=== PATIENT | male | born 1945 | race Caucasian/White ===

== ENCOUNTER 2021-02-08 12:53 | Inpatient (IN) | payer BC, OTHER ==
[~2021-02-08] VITALS: Ht 177.8 cm; Wt 81.6 kg
[~2021-02-08 12:53] MED LIST: BETABLOCKER; LIP10 PO; P MEDS; [UNRECOGNIZED DRUG - OTHER]
[2021-02-08 13:05] VITALS: BP_SYST 163
[2021-02-08] MEDS ORDERED: MORPHINE 2 MG/ML INJ. SYRINGE IM ONE (13:30)
[2021-02-08 14:13] LABS: BASOPHILS % (AUTO) 0.8 % (0.0-2.0); EOSINOPHILS % (AUTO) 0.4 % (0.0-4.0); HEMATOCRIT 37.1 % (36-54); HEMOGLOBIN 12.4 g/dL (14.0-18.0); LYMPHOCYTES # (AUTO) 1.1 K/uL (1.0-5.5); LYMPHOCYTES % (AUTO) 17.4 % (20.5-51.5); MEAN CORPUSCULAR HEMOGLOBIN 32 pg (27-31); MEAN CORPUSCULAR HGB CONC 34 % (32-36); MEAN CORPUSCULAR VOLUME 94 fL (79.0-98.0); MONOCYTES # (AUTO) 0.3 K/uL (0.0-1.0); NEUTROPHILS # (AUTO) 4.8 K/uL (1.8-7.7); NEUTROPHILS % (AUTO) 76.4 % (40.0-70.0); PLATELET COUNT (AUTO) 226 K/uL (130-430); RED BLOOD CELL COUNT(AUTO) 3.95 MIL/uL (4.2-6.2); RED CELL DISTRIBUTION WIDTH 14.1 % (9.0-15.0); WHITE BLOOD COUNT (AUTO) 6.3 K/uL (4.8-10.8)
[2021-02-08 14:28] LABS: ANION GAP 6 (5-15); CALCIUM 9.7 mg/dL (8.4-11.0); CHLORIDE 104 mmol/L (98-107); GLUCOSE 94 mg/dL (70-99); POTASSIUM 4.4 mmol/L (3.5-5.1); SODIUM SERUM 137 mmol/L (136-145); UREA NITROGEN, BLOOD 24 mg/dL (8-21)
[2021-02-08 14:34] LABS: ALANINE AMINOTRANSFERASE 25 U/L (12-78); ALBUMIN 4.2 g/dL (3.4-4.8); ASPARTATE AMINOTRANSFERASE 18 U/L (10-37); LIPASE 87 U/L (73-393); TOTAL BILIRUBIN 0.8 mg/dL (0.0-1.0)
[2021-02-08] MEDS ORDERED: ONDANSETRON HCL 4 MG/2 ML VIAL IVP ONE (15:00)
[2021-02-08] MEDS ORDERED: MORPHINE 4 MG INJ. 4 MG/ML VIAL IVP ONE ×2 (15:00→15:45)
[2021-02-08] MEDS ORDERED: MAG HYDROX/AL HYDROX/SIMETH 30 ML, DICYCLOMINE HCL 20 MG, LIDOCAINE VISCOUS 2% 15ML (PO... PO ONE ×3 (16:00)
[2021-02-08] MEDS: NACL 0.9% 1,000 ML IV SCH (20:09)
[2021-02-08] MEDS: PANTOPRAZOLE SODIUM 40 MG/VIAL (PROTONIX) IVP SCH (20:10)
[2021-02-08 22:10] VITALS: BP_SYST 126
[2021-02-08] MEDS: MAG-AL HYDROX/SIMETH 30 ML UDC PO PRN (22:19)
[2021-02-09] VITALS: BP_SYST 126
[2021-02-09] MEDS: MAG-AL HYDROX/SIMETH 30 ML UDC PO PRN (03:59)
[2021-02-09] MEDS: NACL 0.9% 1,000 ML IV SCH ×2 (06:28→16:45)
[2021-02-09] MEDS: PANTOPRAZOLE SODIUM 40 MG/VIAL (PROTONIX) IVP SCH (06:29)
[2021-02-09 07:26] LABS: BASOPHILS % (AUTO) 0.5 % (0.0-2.0); EOSINOPHILS % (AUTO) 0.1 % (0.0-4.0); HEMATOCRIT 33.7 % (36-54); HEMOGLOBIN 11.2 g/dL (14.0-18.0); LYMPHOCYTES # (AUTO) 1.2 K/uL (1.0-5.5); LYMPHOCYTES % (AUTO) 17.1 % (20.5-51.5); MEAN CORPUSCULAR HEMOGLOBIN 32 pg (27-31); MEAN CORPUSCULAR HGB CONC 33 % (32-36); MEAN CORPUSCULAR VOLUME 95 fL (79.0-98.0); MONOCYTES # (AUTO) 0.6 K/uL (0.0-1.0); MONOCYTES % (AUTO) 8.3 % (1.7-9.3); PLATELET COUNT (AUTO) 208 K/uL (130-430); RED BLOOD CELL COUNT(AUTO) 3.55 MIL/uL (4.2-6.2); RED CELL DISTRIBUTION WIDTH 14.5 % (9.0-15.0); WHITE BLOOD COUNT (AUTO) 6.8 K/uL (4.8-10.8)
[2021-02-09 07:33] VITALS: BP_SYST 134
[2021-02-09] MEDS ORDERED: MORPHINE 2 MG/ML INJ. SYRINGE IVP PRN (08:15)
[2021-02-09] MEDS ORDERED: NITROGLYCERIN 0.4 MG TAB.SUBL SL PRN (08:30)
[2021-02-09] MEDS ORDERED: NACL 0.9% 1,000 ML IV SCH (08:30)
[2021-02-09] MEDS ORDERED: ONDANSETRON HCL 4 MG/2 ML VIAL ONE (08:34)
[2021-02-09] MEDS ORDERED: MORPHINE 2 MG/ML INJ. SYRINGE ONE (08:34)
[2021-02-09 09:11] LABS: ALANINE AMINOTRANSFERASE 18 U/L (12-78); ALBUMIN 3.3 g/dL (3.4-4.8); ANION GAP 9 (5-15); ASPARTATE AMINOTRANSFERASE 21 U/L (10-37); CALCIUM 8.5 mg/dL (8.4-11.0); CHLORIDE 104 mmol/L (98-107); CHOLESTEROL 131 mg/dL (<200); GLUCOSE 109 mg/dL (70-99); HDL CHOLESTEROL 62 mg/dL (>45); LDL CHOLESTEROL 60 mg/dL (<100); POTASSIUM 4.6 mmol/L (3.5-5.1); SODIUM SERUM 137 mmol/L (136-145); THYROID STIMULATING HORMONE 1.31 uIu/mL (0.34-4.82); TOTAL BILIRUBIN 0.4 mg/dL (0.0-1.0); TRIGLYCERIDES 86 mg/dL (30-150); UREA NITROGEN, BLOOD 23 mg/dL (8-21)
[2021-02-09 10:04] LABS: FREE T4 (FREE THYROXINE) 1.2 ng/dl (0.8-1.5); PHOSPHORUS 3.1 mg/dL (2.7-4.5)
[2021-02-09] MEDS: ONDANSETRON HCL 4 MG/2 ML VIAL IVP PRN (14:00)
[2021-02-09 16:32] VITALS: BP_SYST 129
[2021-02-09 18:14] LABS: BILIRUBIN,URINE 1+ (NEGATIVE); BLOOD, URINE NEGATIVE (NEGATIVE); CLARITY/URINE CLEAR (CLEAR); COLOR,URINE YELLOW (YELLOW); GLUCOSE,URINE NEGATIVE (NEGATIVE); KETONES,URINE NEGATIVE (NEGATIVE); LEUKOCYTE ESTERASE ,URINE NEGATIVE (NEGATIVE); NITRITE, URINE NEGATIVE (NEGATIVE); PH,URINE 5.5 (5.0-8.0); PROTEIN URINE NEGATIVE (NEGATIVE); UROBILINOGEN,URINE 0.2 (0.2-1.0)
[2021-02-09 18:30] LABS: BENZODIAZEPINE, URINE POSITIVE (NEG <=150); OPIATE, URINE POSITIVE (NEG <=100)
[2021-02-09 18:31] LABS: BARBITURATE, URINE NEGATIVE (NEG <=200); CANNABINOID, URINE NEGATIVE (NEG <=50); COCAINE, URINE NEGATIVE (NEG <=150); METHAMPHETAMINES SCREEN,URINE NEGATIVE (NEG <=500); PHENCYCLIDINE SCREEN,URINE NEGATIVE (NEG <=25); UR TRICYCLIC ANTIDEPRESSANTS NEGATIVE (NEG <=300); URINE AMPHETAMINE NEGATIVE (NEG <=500); URINE METHADONE NEGATIVE (NEG <=200); URINE OXYCODONE SCREEN NEGATIVE (NEG <=100); URINE PROPOXYPHENE SCREEN NEGATIVE (NEG <=300)
[2021-02-09 20:00] VITALS: BP_SYST 130
[2021-02-09] MEDS: MORPHINE 2 MG/ML INJ. SYRINGE IVP PRN (21:18)
[2021-02-10] VITALS: BP_SYST 140
[2021-02-10] MEDS: MORPHINE 2 MG/ML INJ. SYRINGE IVP PRN ×3 (02:10→14:55)
[2021-02-10] MEDS: NACL 0.9% 1,000 ML IV SCH ×3 (03:27→21:45)
[2021-02-10] MEDS ORDERED: SIMETHICONE 40 MG/0.6 ML ML ONE (06:48)
[2021-02-10] MEDS ORDERED: MEPERIDINE 100 MG INJ. 100 MG/ML VIAL ONE (06:49)
[2021-02-10 07:02] LABS: BASOPHILS % (AUTO) 0.3 % (0.0-2.0); HEMATOCRIT 34.8 % (36-54); HEMOGLOBIN 11.7 g/dL (14.0-18.0); LYMPHOCYTES % (AUTO) 12.2 % (20.5-51.5); MEAN CORPUSCULAR HEMOGLOBIN 32 pg (27-31); MEAN CORPUSCULAR HGB CONC 34 % (32-36); MEAN CORPUSCULAR VOLUME 94 fL (79.0-98.0); MONOCYTES # (AUTO) 0.5 K/uL (0.0-1.0); MONOCYTES % (AUTO) 6.7 % (1.7-9.3); NEUTROPHILS # (AUTO) 6.4 K/uL (1.8-7.7); NEUTROPHILS % (AUTO) 80.8 % (40.0-70.0); PLATELET COUNT (AUTO) 213 K/uL (130-430); RED BLOOD CELL COUNT(AUTO) 3.69 MIL/uL (4.2-6.2); RED CELL DISTRIBUTION WIDTH 14.1 % (9.0-15.0)
[2021-02-10 07:39] LABS: ALANINE AMINOTRANSFERASE 28 U/L (12-78); ALBUMIN 3.7 g/dL (3.4-4.8); ANION GAP 9 (5-15); ASPARTATE AMINOTRANSFERASE 41 U/L (10-37); CALCIUM 9.3 mg/dL (8.4-11.0); CHLORIDE 106 mmol/L (98-107); CREATININE 1.59 mg/dL (0.55-1.30); GLUCOSE 121 mg/dL (70-99); LIPASE 72 U/L (73-393); POTASSIUM 4.8 mmol/L (3.5-5.1); SODIUM SERUM 141 mmol/L (136-145); TOTAL BILIRUBIN 0.6 mg/dL (0.0-1.0); UREA NITROGEN, BLOOD 27 mg/dL (8-21)
[2021-02-10 08:00] VITALS: BP_SYST 125
[2021-02-10] MEDS: MIDAZOLAM HCL 5 MG/5 ML VIAL ONE ×4 (08:18→08:26)
[2021-02-10] MEDS ORDERED: POLYETHYLENE GLYCOL 3350, 17 GM/ POWD.PACK PO ONE (09:30)
[2021-02-10] MEDS ORDERED: DOCUSATE SODIUM 100 MG CAPSULE PO ONE (09:30)
[2021-02-10] MEDS: PANTOPRAZOLE SODIUM 40 MG/VIAL (PROTONIX) IVP SCH (09:40)
[2021-02-10 12:00] VITALS: BP_SYST 127
[2021-02-10] MEDS ORDERED: MAGNESIUM CITRATE 300 ML ORAL SOLUTION PO ONE (17:00)
[2021-02-10] MEDS ORDERED: MILK OF MAGNESIA 30 ML UDC PO ONE (20:00)
[2021-02-10 20:30] VITALS: BP_SYST 140
[2021-02-10] MEDS ORDERED: MINERAL OIL 133 ML ENEMA RC ONE (20:45)
[2021-02-10] MEDS: DOCUSATE SODIUM 100 MG CAPSULE PO SCH (20:47)
[2021-02-11] VITALS: BP_SYST 121
[2021-02-11] MEDS: ONDANSETRON HCL 4 MG/2 ML VIAL IVP PRN ×3 (01:46→20:42)
[2021-02-11 06:27] LABS: BASOPHILS % (AUTO) 0.2 % (0.0-2.0); HEMATOCRIT 34.5 % (36-54); HEMOGLOBIN 11.7 g/dL (14.0-18.0); LYMPHOCYTES # (AUTO) 1.1 K/uL (1.0-5.5); LYMPHOCYTES % (AUTO) 12.6 % (20.5-51.5); MEAN CORPUSCULAR HEMOGLOBIN 32 pg (27-31); MEAN CORPUSCULAR HGB CONC 34 % (32-36); MEAN CORPUSCULAR VOLUME 94 fL (79.0-98.0); MONOCYTES # (AUTO) 0.7 K/uL (0.0-1.0); MONOCYTES % (AUTO) 8.1 % (1.7-9.3); NEUTROPHILS # (AUTO) 7.1 K/uL (1.8-7.7); NEUTROPHILS % (AUTO) 79.1 % (40.0-70.0); PLATELET COUNT (AUTO) 198 K/uL (130-430); RED BLOOD CELL COUNT(AUTO) 3.69 MIL/uL (4.2-6.2); RED CELL DISTRIBUTION WIDTH 13.7 % (9.0-15.0); WHITE BLOOD COUNT (AUTO) 8.9 K/uL (4.8-10.8)
[2021-02-11 07:00] LABS: ANION GAP 7 (5-15); CALCIUM 8.7 mg/dL (8.4-11.0); CHLORIDE 104 mmol/L (98-107); CREATININE 1.38 mg/dL (0.55-1.30); GLUCOSE 117 mg/dL (70-99); PHOSPHORUS 3.8 mg/dL (2.7-4.5); SODIUM SERUM 142 mmol/L (136-145); UREA NITROGEN, BLOOD 28 mg/dL (8-21)
[2021-02-11 08:00] VITALS: BP_SYST 125
[2021-02-11] MEDS: DOCUSATE SODIUM 100 MG CAPSULE PO SCH ×2 (09:36→20:28)
[2021-02-11] MEDS: PANTOPRAZOLE SODIUM 40 MG/VIAL (PROTONIX) IVP SCH (09:36)
[2021-02-11] MEDS: POLYETHYLENE GLYCOL 3350, 17 GM/ POWD.PACK PO SCH (09:36)
[2021-02-11] MEDS: NACL 0.9% 1,000 ML IV SCH ×2 (09:37→18:50)
[2021-02-11 12:00] VITALS: BP_SYST 123
[2021-02-11] MEDS ORDERED: MAGNESIUM CITRATE 300 ML ORAL SOLUTION PO ONE (14:00)
[2021-02-11 16:00] VITALS: BP_SYST 127
[2021-02-11 19:48] VITALS: BP_SYST 114
[2021-02-12] VITALS: BP_SYST 101
[2021-02-12] MEDS: ONDANSETRON HCL 4 MG/2 ML VIAL IVP PRN ×2 (00:42→06:52)
[2021-02-12] MEDS: NACL 0.9% 1,000 ML IV SCH ×2 (05:39→16:50)
[2021-02-12 08:00] VITALS: BP_SYST 131
[2021-02-12] MEDS: POLYETHYLENE GLYCOL 3350, 17 GM/ POWD.PACK PO SCH (08:09)
[2021-02-12] MEDS: DOCUSATE SODIUM 100 MG CAPSULE PO SCH ×2 (08:09→21:00)
[2021-02-12] MEDS: PANTOPRAZOLE SODIUM 40 MG/VIAL (PROTONIX) IVP SCH (08:15)
[2021-02-12] MEDS ORDERED: DIATR MEGLU/DIATRIZ SOD 30 ML SOLUTION PO ONE ×2 (09:09→10:23)
[2021-02-12 11:30] VITALS: BP_SYST 144
[2021-02-12 15:26] VITALS: BP_SYST 136
[2021-02-12 21:39] VITALS: BP_SYST 132
[2021-02-13 00:22] VITALS: BP_SYST 143
[2021-02-13 01:42] VITALS: BP_SYST 161
[2021-02-13] MEDS: NACL 0.9% 1,000 ML IV SCH ×3 (04:45→20:30)
[2021-02-13 08:00] VITALS: BP_SYST 109
[2021-02-13] MEDS: PANTOPRAZOLE SODIUM 40 MG/VIAL (PROTONIX) IVP SCH (08:41)
[2021-02-13] MEDS: DOCUSATE SODIUM 100 MG CAPSULE PO SCH ×2 (08:42→21:00)
[2021-02-13] MEDS: POLYETHYLENE GLYCOL 3350, 17 GM/ POWD.PACK PO SCH (08:42)
[2021-02-13 11:46] LABS: PROTHROMBIN TIME 10.5 SECS (9.5-12.5)
[2021-02-13 12:28] VITALS: BP_SYST 134
[2021-02-13 16:43] VITALS: BP_SYST 130
[2021-02-13] MEDS ORDERED: metroNIDAZOLE 500 mg/NS 100 mL IVPB IV ONE (17:10)
[2021-02-13] MEDS ORDERED: NS 1000 ML IV.SOLN IV ONE (17:10)
[2021-02-13] MEDS ORDERED: SEVOFLURANE 15 MIN GAS INH ONE (17:10)
[2021-02-13] MEDS ORDERED: CEFAZOLIN 2 GM IVPB PREMIX 50 ML IV ONE (17:10)
[2021-02-13] MEDS ORDERED: MIDAZOLAM HCL 5 MG/5 ML VIAL IVP ONE (17:10)
[2021-02-13] MEDS ORDERED: WATER FOR IRRIGATION,STERILE 1,000 ML IRRIG.SOLN IR ONE (17:10)
[2021-02-13] MEDS ORDERED: fentaNYL CITRATE/PF 100 MCG/2 ML AMP IVP ONE (17:10)
[2021-02-13] MEDS ORDERED: BUPIVACAINE /PF 0.25% 30 ML VIAL INJ ONE (17:10)
[2021-02-13] MEDS ORDERED: ROCURONIUM BROMIDE 10 MG/ML (ZEMURON) IV ONE (17:10)
[2021-02-13] MEDS ORDERED: PROPOFOL 200MG/ 20ML VIAL (DIPRIVAN) IV ONE (17:10)
[2021-02-13] MEDS ORDERED: METOCLOPRAMIDE HCL 10 MG/2 ML VIAL IVP PRN (17:30)
[2021-02-13] MEDS ORDERED: ONDANSETRON HCL 4 MG/2 ML VIAL IVP PRN (17:30)
[2021-02-13] MEDS ORDERED: fentaNYL CITRATE/PF 100 MCG/2 ML AMP IVP PRN ×2 (17:30)
[2021-02-13] MEDS ORDERED: HYDROcodone/ACETAMIN 5-325 MG TAB (NORCO/ VICODIN) PO PRN (18:15)
[2021-02-13] MEDS ORDERED: HYDROmorphone 1 MG/ML INJ. CARTRIDGE IM PRN (18:15)
[2021-02-13] MEDS ORDERED: AMIODARONE HCL 150 MG/3ML VIAL IVP ONE (18:45)
[2021-02-13] MEDS ORDERED: AMIODARONE HCL 150 MG in D5W 100 ML IV ONE (19:00)
[2021-02-14] VITALS: BP_SYST 110
[2021-02-14] MEDS: NACL 0.9% 1,000 ML IV SCH ×2 (06:14→17:26)
[2021-02-14 08:01] VITALS: BP_SYST 113
[2021-02-14] MEDS: POLYETHYLENE GLYCOL 3350, 17 GM/ POWD.PACK PO SCH (09:00)
[2021-02-14] MEDS: DOCUSATE SODIUM 100 MG CAPSULE PO SCH ×2 (09:00→21:00)
[2021-02-14] MEDS: PANTOPRAZOLE SODIUM 40 MG/VIAL (PROTONIX) IVP SCH (10:02)
[2021-02-14 12:00] VITALS: BP_SYST 120
[2021-02-14 16:15] VITALS: BP_SYST 118
[2021-02-14 20:00] VITALS: BP_SYST 121
[2021-02-15 00:59] VITALS: BP_SYST 110
[2021-02-15] MEDS ORDERED: AMIODARONE HCL 150 MG in D5W 100 ML IV ONE (02:30)
[2021-02-15] MEDS ORDERED: AMIODARONE HCL 450 MG in D5W 241 ML IV SCH ×2 (02:30→07:45)
[2021-02-15] MEDS ORDERED: AMIODARONE HCL 150 MG/3ML VIAL ONE (02:35)
[2021-02-15] MEDS ORDERED: AMIODARONE HCL 450 MG/9 ML VIAL IV ONE (02:37)
[2021-02-15] MEDS: NACL 0.9% 1,000 ML IV SCH (03:07)
[2021-02-15 06:09] LABS: BASOPHILS % (AUTO) 0.4 % (0.0-2.0); EOSINOPHILS # (AUTO) 0.1 K/uL (0.0-0.4); EOSINOPHILS % (AUTO) 1.1 % (0.0-4.0); HEMATOCRIT 32.2 % (36-54); HEMOGLOBIN 10.7 g/dL (14.0-18.0); LYMPHOCYTES # (AUTO) 1.6 K/uL (1.0-5.5); LYMPHOCYTES % (AUTO) 17.1 % (20.5-51.5); MEAN CORPUSCULAR HEMOGLOBIN 31 pg (27-31); MEAN CORPUSCULAR HGB CONC 33 % (32-36); MEAN CORPUSCULAR VOLUME 95 fL (79.0-98.0); MONOCYTES # (AUTO) 0.5 K/uL (0.0-1.0); NEUTROPHILS # (AUTO) 7.3 K/uL (1.8-7.7); NEUTROPHILS % (AUTO) 76.4 % (40.0-70.0); PLATELET COUNT (AUTO) 172 K/uL (130-430); RED BLOOD CELL COUNT(AUTO) 3.41 MIL/uL (4.2-6.2); RED CELL DISTRIBUTION WIDTH 13.7 % (9.0-15.0); WHITE BLOOD COUNT (AUTO) 9.6 K/uL (4.8-10.8)
[2021-02-15 06:52] LABS: ALANINE AMINOTRANSFERASE 14 U/L (12-78); ALBUMIN 2.4 g/dL (3.4-4.8); ANION GAP 14 (5-15); ASPARTATE AMINOTRANSFERASE 20 U/L (10-37); CALCIUM 7.6 mg/dL (8.4-11.0); CHLORIDE 112 mmol/L (98-107); CREATININE 1.04 mg/dL (0.55-1.30); GLUCOSE 88 mg/dL (70-99); PHOSPHORUS 1.8 mg/dL (2.7-4.5); SODIUM SERUM 147 mmol/L (136-145); TOTAL BILIRUBIN 0.5 mg/dL (0.0-1.0); UREA NITROGEN, BLOOD 23 mg/dL (8-21)
[2021-02-15] MEDS ORDERED: GASTROGRAFIN 120 ML ONE (07:26)
[2021-02-15 08:00] VITALS: BP_SYST 115
[2021-02-15] MEDS ORDERED: K PHOS 15 MM in NS 250 ML IV ONE (08:15)
[2021-02-15] MEDS ORDERED: POTASSIUM CHLORIDE 20 MEQ TAB.PRT.SR PO ONE (09:00)
[2021-02-15] MEDS ORDERED: PANTOPRAZOLE SODIUM 40 MG TAB PO ONE (09:00)
[2021-02-15] MEDS: DOCUSATE SODIUM 100 MG CAPSULE PO SCH ×2 (09:24→20:45)
[2021-02-15] MEDS: AMIODARONE HCL 200 MG TABLET PO SCH ×2 (09:25→20:44)
[2021-02-15] MEDS: POLYETHYLENE GLYCOL 3350, 17 GM/ POWD.PACK PO SCH (09:26)
[2021-02-15 12:00] VITALS: BP_SYST 116
[2021-02-15] MEDS: NORMAL SALINE 5 ML DISP.SYRIN IVF SCH ×2 (14:17→22:00)
[2021-02-15 16:00] VITALS: BP_SYST 125
[2021-02-15 19:00] VITALS: BP_SYST 126
[2021-02-15 20:00] VITALS: BP_SYST 126
[2021-02-15] MEDS: POTASSIUM CHLORIDE 20 MEQ TAB.PRT.SR PO SCH (20:46)
[2021-02-16] VITALS: BP_SYST 138
[2021-02-16 04:00] VITALS: BP_SYST 136
[2021-02-16] MEDS: NORMAL SALINE 5 ML DISP.SYRIN IVF SCH (05:58)
[2021-02-16 08:00] VITALS: BP_SYST 101
[2021-02-16 08:02] LABS: BASOPHILS # (AUTO) 0.1 K/uL (0.0-0.2); BASOPHILS % (AUTO) 0.6 % (0.0-2.0); EOSINOPHILS # (AUTO) 0.3 K/uL (0.0-0.4); EOSINOPHILS % (AUTO) 2.9 % (0.0-4.0); HEMATOCRIT 34.1 % (36-54); HEMOGLOBIN 11.5 g/dL (14.0-18.0); LYMPHOCYTES # (AUTO) 1.6 K/uL (1.0-5.5); LYMPHOCYTES % (AUTO) 17.9 % (20.5-51.5); MEAN CORPUSCULAR HEMOGLOBIN 32 pg (27-31); MEAN CORPUSCULAR HGB CONC 34 % (32-36); MEAN CORPUSCULAR VOLUME 94 fL (79.0-98.0); MONOCYTES # (AUTO) 0.6 K/uL (0.0-1.0); MONOCYTES % (AUTO) 6.4 % (1.7-9.3); NEUTROPHILS # (AUTO) 6.6 K/uL (1.8-7.7); NEUTROPHILS % (AUTO) 72.2 % (40.0-70.0); PLATELET COUNT (AUTO) 162 K/uL (130-430); RED BLOOD CELL COUNT(AUTO) 3.63 MIL/uL (4.2-6.2); RED CELL DISTRIBUTION WIDTH 13.9 % (9.0-15.0); WHITE BLOOD COUNT (AUTO) 9.1 K/uL (4.8-10.8)
[2021-02-16] MEDS ORDERED: APIXABAN 2.5 MG TABLET PO SCH (09:00)
[2021-02-16] MEDS ORDERED: AMIODARONE HCL 200 MG TABLET PO SCH (09:00)
[2021-02-16] MEDS ORDERED: PANTOPRAZOLE SODIUM 40 MG TAB PO SCH (09:00)
[2021-02-16] MEDS: POTASSIUM CHLORIDE 20 MEQ TAB.PRT.SR PO SCH (09:48)
[2021-02-16] MEDS: DOCUSATE SODIUM 100 MG CAPSULE PO SCH (09:49)
[2021-02-16] MEDS: POLYETHYLENE GLYCOL 3350, 17 GM/ POWD.PACK PO SCH (09:50)
[2021-02-16 10:22] LABS: ALANINE AMINOTRANSFERASE 26 U/L (12-78); ANION GAP 8 (5-15); CALCIUM 7.9 mg/dL (8.4-11.0); CHLORIDE 108 mmol/L (98-107); CREATININE 1.28 mg/dL (0.55-1.30); GLUCOSE 115 mg/dL (70-99); POTASSIUM 3.8 mmol/L (3.5-5.1); SODIUM SERUM 143 mmol/L (136-145); TOTAL BILIRUBIN 0.6 mg/dL (0.0-1.0); UREA NITROGEN, BLOOD 17 mg/dL (8-21)
[2021-02-16] MEDS ORDERED: AMIO200T5 PO (11:02)
[2021-02-16] MEDS ORDERED: NITSL SL (11:02)
[2021-02-16] MEDS ORDERED: APIX2.5T PO (11:02)
[2021-02-16] MEDS ORDERED: PRO40 PO (11:02)
[2021-02-16] MEDS ORDERED: DOCU-144 PO (11:02)
[2021-02-16] MEDS ORDERED: GASTROGRAFIN 120 ML ONE (11:07)
[2021-02-16 11:46] VITALS: BP_SYST 114
[2021-02-16 12:11] LABS: ASPARTATE AMINOTRANSFERASE 31 U/L (10-37)
== END 2021-02-16 12:30 | disposition home or self-care (01) | DRG 335 ==
LOC: SED 12:53 → STU 15:25 → OBSVTOIN 02-10 09:35
PROVIDERS: ADMIT Internal Medicine Hospice and Palliative Medicine; ATTEND Internal Medicine Hospice and Palliative Medicine
PROC: 0DB78ZX Excision of Stomach, Pylorus, Via Natural or Artificial Opening Endoscopic, Diagnostic (ICD-10-PCS; 2021-02-10)
PROC: 0DB68ZX Excision of Stomach, Via Natural or Artificial Opening Endoscopic, Diagnostic (ICD-10-PCS; 2021-02-10)
PROC: 0DB98ZX Excision of Duodenum, Via Natural or Artificial Opening Endoscopic, Diagnostic (ICD-10-PCS; principal; 2021-02-10 08:00)
PROC: 0DNU4ZZ Release Omentum, Percutaneous Endoscopic Approach (ICD-10-PCS; 2021-02-13)
DX: K29.70 Gastritis, unspecified, without bleeding (principal); N17.0 Acute kidney failure with tubular necrosis; I21.A1 Myocardial infarction type 2; E43 Unspecified severe protein-calorie malnutrition; I13.0 Hypertensive heart and chronic kidney disease with heart failure and stage 1 through stage 4 chronic kidney disease, or unspecified chronic kidney disease; E87.1 Hypo-osmolality and hyponatremia; K56.50 Intestinal adhesions [bands], unspecified as to partial versus complete obstruction; R18.8 Other ascites; K56.7 Ileus, unspecified; K29.80 Duodenitis without bleeding; K44.9 Diaphragmatic hernia without obstruction or gangrene; I50.9 Heart failure, unspecified; D64.9 Anemia, unspecified; E78.5 Hyperlipidemia, unspecified; E83.39 Other disorders of phosphorus metabolism; Z20.822 Contact with and (suspected) exposure to COVID-19; E83.42 Hypomagnesemia; E86.0 Dehydration; E83.52 Hypercalcemia; I48.0 Paroxysmal atrial fibrillation; M10.9 Gout, unspecified; N18.32 Chronic kidney disease, stage 3b; Z80.8 Family history of malignant neoplasm of other organs or systems; Z85.828 Personal history of other malignant neoplasm of skin; Z87.891 Personal history of nicotine dependence; Z79.899 Other long term (current) drug therapy
CPT/HCPCS: 36415; 43239; 71045; 74018; 74250-TC; 76376; 76700-TC; 80048; 80053; 80061; 80307; 81003; 82150; 83036; 83690; 83735; 83880; 84100; 84439; 84443; 84484; 85025; 85610-TC; 85730-TC; 87081; 88305; 88312; 88313; 93005; 96372; 96374; 96375; 99285; C1727; C9113; G0378; J0282; J0690; J2001; J2175; J2250; J2270; J2405; J2704; J3010; J3490; J7030; J7050; J7060; Q9963; Q9964

== ENCOUNTER 2023-04-29 16:27 | Inpatient (IN) | payer OTHER ==
[~2023-04-29] VITALS: Ht 175.3 cm; Wt 77.1 kg
[~2023-04-29 16:27] MED LIST changes: +AMIO200T68 PO; +APIX2.5T PO; -BETABLOCKER; +DOCU-144 PO; +NITSL SL; -P MEDS; +PRO40 PO; -[UNRECOGNIZED DRUG - OTHER]
[2023-04-29 16:30] VITALS: BP_SYST 141; PULSE 87; RESP 18; TEMP 98.2; O2SAT 98
[2023-04-29 17:49] LABS: ANION GAP 11 (5-15); CALCIUM 8.9 mg/dL (8.4-11.0); CARBON DIOXIDE 25 mmol/L (23-29); CHLORIDE 102 mmol/L (98-107); CREATININE 1.41 mg/dL (0.55-1.30); GLUCOSE 125 mg/dL (74-106); POTASSIUM 4.9 mmol/L (3.5-5.1); SODIUM SERUM 138 mmol/L (136-145); UREA NITROGEN, BLOOD 39 mg/dL (8-21)
[2023-04-29 17:51] LABS: INR 1.1 (0.80-1.20); PROTHROMBIN TIME 11.6 SECS (9.5-12.5)
[2023-04-29 17:52] LABS: HEMOGLOBIN 7.8 g/dL (14.0-18.0); MEAN CORPUSCULAR HEMOGLOBIN 31 pg (27-31); MEAN CORPUSCULAR HGB CONC 36 % (32-36); MEAN CORPUSCULAR VOLUME 87 fL (79.0-98.0); RED BLOOD CELL COUNT(AUTO) 2.54 MIL/uL (4.2-6.2); RED CELL DISTRIBUTION WIDTH 13.3 % (9.0-15.0)
[2023-04-29 18:54] LABS: PLATELET COUNT (AUTO) 4 K/uL (130-430)
[2023-04-29] MEDS: ACETAMINOPHEN 500 MG TABLET PO ONE (19:18)
[2023-04-29] MEDS ORDERED: FENO160 PO (19:41)
[2023-04-29] MEDS ORDERED: AMLO2.5T2 PO (19:41)
[2023-04-29] MEDS ORDERED: METO25TA3 PO (19:41)
[2023-04-29] MEDS ORDERED: [UNRECOGNIZED DRUG - OTHER] (19:44)
[2023-04-29] MEDS ORDERED: CHOL200026 PO (19:44)
[2023-04-29] MEDS ORDERED: [UNRECOGNIZED DRUG - OTHER] (19:44)
[2023-04-29] MEDS ORDERED: MULTIVITAMIN FOR MEN (19:44)
[2023-04-29 19:58] LABS: BAND % (MANUAL) 4 % (0-6); BASOPHILS % (MANUAL) 0 % (0-2); EOSINOPHILS % (MANUAL) 0 % (0-7); LYMPHOCYTES % (MANUAL) 33 % (20-46); MONOCYTES % (MANUAL) 10 % (0-11); PLATELET ESTIMATE DECREASED (ADEQUATE)
[2023-04-29 19:59] LABS: OVALOCYTES MODERATE
[2023-04-30] MEDS: DEXAMETHASONE SOD PHOSPHATE 10 MG/ML VIAL IVP SCH (01:09)
[2023-04-30 03:20] LABS: BILIRUBIN,URINE NEGATIVE (NEGATIVE); BLOOD, URINE NEGATIVE (NEGATIVE); CLARITY/URINE CLEAR (CLEAR); COLOR,URINE YELLOW (YELLOW); GLUCOSE,URINE NEGATIVE (NEGATIVE); KETONES,URINE NEGATIVE (NEGATIVE); LEUKOCYTE ESTERASE ,URINE NEGATIVE (NEGATIVE); NITRITE, URINE NEGATIVE (NEGATIVE); PH,URINE 6.5 (5.0-8.0); PROTEIN URINE NEGATIVE (NEGATIVE); UROBILINOGEN,URINE 0.2 (0.2-1.0)
[2023-04-30 05:22] LABS: BASOPHILS % (AUTO) 0.2 % (0.0-2.0); HEMOGLOBIN 7.8 g/dL (14.0-18.0); LYMPHOCYTES # (AUTO) 0.8 K/uL (1.0-5.5); LYMPHOCYTES % (AUTO) 25.4 % (20.5-51.5); MEAN CORPUSCULAR HEMOGLOBIN 31 pg (27-31); MEAN CORPUSCULAR HGB CONC 36 % (32-36); MEAN CORPUSCULAR VOLUME 86 fL (79.0-98.0); MONOCYTES # (AUTO) 0.3 K/uL (0.0-1.0); MONOCYTES % (AUTO) 11.4 % (1.7-9.3); NEUTROPHILS # (AUTO) 1.9 K/uL (1.8-7.7); RED BLOOD CELL COUNT(AUTO) 2.56 MIL/uL (4.2-6.2); RED CELL DISTRIBUTION WIDTH 13.2 % (9.0-15.0)
[2023-04-30 05:54] LABS: TOTAL IRON BIND. CAPACITY 261 ug/dL (250-450)
[2023-04-30 06:00] LABS: HEMATOCRIT 21.9 % (36-54); PLATELET COUNT (AUTO) 4 K/uL (130-430)
[2023-04-30 11:30] VITALS: BP_SYST 147; PULSE 120; RESP 18; TEMP 98.9; O2SAT 95
[2023-04-30 13:13] VITALS: BP_SYST 140; PULSE 100; RESP 18; TEMP 98.8
[2023-04-30] MEDS ORDERED: FENO145T24 PO (14:36)
[2023-04-30] MEDS ORDERED: ATOR40TA68 PO (14:36)
[2023-04-30] MEDS ORDERED: FENO145T PO (14:37)
[2023-04-30 17:11] VITALS: BP_SYST 105; PULSE 88; RESP 15; TEMP 98.5; O2SAT 98
[2023-04-30 20:00] VITALS: BP_SYST 106; PULSE 62; RESP 18; TEMP 98.4; O2SAT 98
[2023-04-30 22:19] VITALS: O2SAT 98
[2023-05-01] VITALS: BP_SYST 118; PULSE 68; RESP 18; TEMP 98.6; O2SAT 98
[2023-05-01 03:54] VITALS: BP_SYST 106; PULSE 62; RESP 18; TEMP 98.4; O2SAT 98
[2023-05-01 05:54] LABS: BASOPHILS % (AUTO) 0.1 % (0.0-2.0); HEMATOCRIT 23.8 % (36-54); HEMOGLOBIN 8.3 g/dL (14.0-18.0); LYMPHOCYTES # (AUTO) 0.9 K/uL (1.0-5.5); LYMPHOCYTES % (AUTO) 23.6 % (20.5-51.5); MEAN CORPUSCULAR HEMOGLOBIN 30 pg (27-31); MEAN CORPUSCULAR HGB CONC 35 % (32-36); MEAN CORPUSCULAR VOLUME 87 fL (79.0-98.0); MONOCYTES # (AUTO) 0.3 K/uL (0.0-1.0); MONOCYTES % (AUTO) 6.9 % (1.7-9.3); NEUTROPHILS # (AUTO) 2.6 K/uL (1.8-7.7); NEUTROPHILS % (AUTO) 69.4 % (40.0-70.0); RED BLOOD CELL COUNT(AUTO) 2.75 MIL/uL (4.2-6.2); RED CELL DISTRIBUTION WIDTH 13.5 % (9.0-15.0); WHITE BLOOD COUNT (AUTO) 3.8 K/uL (4.8-10.8)
[2023-05-01 06:35] LABS: ALANINE AMINOTRANSFERASE 27 U/L (12-78); ALBUMIN 3.4 g/dL (3.4-4.8); ANION GAP 13 (5-15); ASPARTATE AMINOTRANSFERASE 43 U/L (10-37); CALCIUM 9.2 mg/dL (8.4-11.0); CARBON DIOXIDE 21 mmol/L (23-29); CHLORIDE 101 mmol/L (98-107); CREATININE 1.45 mg/dL (0.55-1.30); GLUCOSE 143 mg/dL (74-106); POTASSIUM 4.4 mmol/L (3.5-5.1); SODIUM SERUM 135 mmol/L (136-145); TOTAL BILIRUBIN 1.4 mg/dL (0.0-1.0); TOTAL PROTEIN, SERUM 6.7 g/dL (6.4-8.3); UREA NITROGEN, BLOOD 45 mg/dL (8-21)
[2023-05-01 07:43] LABS: PLATELET COUNT (AUTO) 3 K/uL (130-430)
[2023-05-01 08:00] VITALS: BP_SYST 125; PULSE 72; RESP 18; TEMP 98.5; O2SAT 98
[2023-05-01] MEDS: amLODIPine BESYLATE 5 MG TABLET PO SCH (09:33)
[2023-05-01] MEDS: ATORVASTATIN 20 MG TABLET PO SCH (09:34)
[2023-05-01] MEDS: CHOLECALCIFEROL (VITAMIN D3) 2,000 UNIT TABLET PO SCH (09:34)
[2023-05-01] MEDS: METOPROLOL SUCCINATE 25 MG TAB.SR.24H (TOPROL XL) PO SCH (09:34)
[2023-05-01 12:00] VITALS: BP_SYST 121; PULSE 75; RESP 18; TEMP 98.2; O2SAT 98
[2023-05-01 16:00] VITALS: BP_SYST 125; PULSE 75; RESP 18; TEMP 98.6; O2SAT 98
[2023-05-01 20:00] VITALS: BP_SYST 120; PULSE 74; RESP 18; TEMP 97.4; O2SAT 99
[2023-05-02] VITALS: O2SAT 96
[2023-05-02] MEDS: ACETAMINOPHEN 325 MG TABLET PO PRN (00:15)
[2023-05-02 00:30] VITALS: BP_SYST 121; PULSE 71; RESP 16; TEMP 97.8; O2SAT 96
[2023-05-02] MEDS: TEMAZEPAM 7.5 MG CAPSULE PO PRN (02:18)
[2023-05-02 07:18] LABS: ANION GAP 12 (5-15); CALCIUM 8.9 mg/dL (8.4-11.0); CARBON DIOXIDE 23 mmol/L (23-29); CHLORIDE 101 mmol/L (98-107); CREATININE 1.49 mg/dL (0.55-1.30); GLUCOSE 125 mg/dL (74-106); POTASSIUM 4.9 mmol/L (3.5-5.1); SODIUM SERUM 136 mmol/L (136-145); UREA NITROGEN, BLOOD 57 mg/dL (8-21)
[2023-05-02 07:30] LABS: BASOPHILS % (AUTO) 0.1 % (0.0-2.0); EOSINOPHILS % (AUTO) 0.1 % (0.0-4.0); HEMOGLOBIN 7.7 g/dL (14.0-18.0); LYMPHOCYTES # (AUTO) 0.7 K/uL (1.0-5.5); LYMPHOCYTES % (AUTO) 21.9 % (20.5-51.5); MEAN CORPUSCULAR HEMOGLOBIN 31 pg (27-31); MEAN CORPUSCULAR HGB CONC 36 % (32-36); MEAN CORPUSCULAR VOLUME 87 fL (79.0-98.0); MONOCYTES # (AUTO) 0.2 K/uL (0.0-1.0); MONOCYTES % (AUTO) 6.5 % (1.7-9.3); NEUTROPHILS # (AUTO) 2.2 K/uL (1.8-7.7); RED BLOOD CELL COUNT(AUTO) 2.49 MIL/uL (4.2-6.2); RED CELL DISTRIBUTION WIDTH 13.2 % (9.0-15.0); WHITE BLOOD COUNT (AUTO) 3.1 K/uL (4.8-10.8)
[2023-05-02 08:15] VITALS: BP_SYST 121; PULSE 72; RESP 18; TEMP 97.5; O2SAT 95; O2SAT 96
[2023-05-02 08:30] VITALS: BP_SYST 121; PULSE 72; RESP 18; TEMP 97.5; O2SAT 96
[2023-05-02 09:18] LABS: HEMATOCRIT 21.6 % (36-54); PLATELET COUNT (AUTO) 3 K/uL (130-430)
[2023-05-02 09:20] LABS: NEUTROPHILS % (AUTO) 71.4 % (40.0-70.0)
[2023-05-03] MEDS ORDERED: BACL10TA PO (19:35)
[2023-05-03] MEDS ORDERED: DEXA2TAB PO (19:35)
[2023-05-03] MEDS ORDERED: HYDR-500 PO (19:35)
== END 2023-05-02 13:05 | disposition left against medical advice (07) | DRG 841 ==
LOC: SED 16:27 → SMU 20:14
PROVIDERS: ADMIT Specialist; ATTEND Specialist
PROC: 30233R1 Transfusion of Nonautologous Platelets into Peripheral Vein, Percutaneous Approach (ICD-10-PCS; principal; 2023-04-29)
DX: D47.1 Chronic myeloproliferative disease (principal); D61.9 Aplastic anemia, unspecified; R65.10 Systemic inflammatory response syndrome (SIRS) of non-infectious origin without acute organ dysfunction; E44.1 Mild protein-calorie malnutrition; D46.9 Myelodysplastic syndrome, unspecified; N18.30 Chronic kidney disease, stage 3 unspecified; I12.9 Hypertensive chronic kidney disease with stage 1 through stage 4 chronic kidney disease, or unspecified chronic kidney disease; Z53.29 Procedure and treatment not carried out because of patient's decision for other reasons; E78.00 Pure hypercholesterolemia, unspecified; Z79.899 Other long term (current) drug therapy; Z79.01 Long term (current) use of anticoagulants
CPT/HCPCS: 36415; 76700; 80048; 80053; 81001; 81003; 83540; 83550; 83880; 85007; 85025; 85027; 85044; 85610; 85730; 86886; 86900; 86901; 99285; J1100; P9034

== ENCOUNTER 2023-05-03 15:46 | Inpatient (IN) | payer OTHER ==
[~2023-05-03] VITALS: Ht 177.8 cm; Wt 71.4 kg
[~2023-05-03 15:46] MED LIST changes: -AMIO200T68 PO; +AMLO2.5T2 PO; -APIX2.5T PO; +ATOR40TA68 PO; +CHOL200026 PO; -DOCU-144 PO; +FENO145T PO; -LIP10 PO; +METO25TA3 PO; +MULTIVITAMIN FOR MEN; -NITSL SL; -PRO40 PO; +[UNRECOGNIZED DRUG - OTHER]; +[UNRECOGNIZED DRUG - OTHER]
[2023-05-03 15:50] VITALS: BP_SYST 129; PULSE 89; RESP 18; TEMP 98.3; O2SAT 99
[2023-05-03 17:20] LABS: HEMOGLOBIN 7.2 g/dL (14.0-18.0)
[2023-05-03 17:22] LABS: INR 1.2 (0.80-1.20)
[2023-05-03 17:31] LABS: MEAN CORPUSCULAR HEMOGLOBIN 31 pg (27-31); MEAN CORPUSCULAR HGB CONC 36 % (32-36); MEAN CORPUSCULAR VOLUME 85 fL (79.0-98.0); RED BLOOD CELL COUNT(AUTO) 2.36 MIL/uL (4.2-6.2); RED CELL DISTRIBUTION WIDTH 13.4 % (9.0-15.0)
[2023-05-03 17:34] LABS: WHITE BLOOD COUNT (AUTO) 1.9 K/uL (4.8-10.8)
[2023-05-03 17:35] LABS: HEMATOCRIT 20.2 % (36-54); PLATELET COUNT (AUTO) 2 K/uL (130-430)
[2023-05-03 17:55] LABS: ANION GAP 14 (5-15); CALCIUM 7.9 mg/dL (8.4-11.0); CARBON DIOXIDE 21 mmol/L (23-29); CHLORIDE 103 mmol/L (98-107); CREATININE 1.47 mg/dL (0.55-1.30); GLUCOSE 120 mg/dL (74-106); SODIUM SERUM 138 mmol/L (136-145); UREA NITROGEN, BLOOD 53 mg/dL (8-21)
[2023-05-03] MEDS: NACL 0.9% 1,000 ML IV ONE (18:19)
[2023-05-03] MEDS ORDERED: BACL10TA PO (19:35)
[2023-05-03] MEDS ORDERED: DEXA2TAB PO (19:35)
[2023-05-03] MEDS ORDERED: HYDR-500 PO (19:35)
[2023-05-03 19:40] LABS: BAND % (MANUAL) 1 % (0-6); BASOPHILS % (MANUAL) 0 % (0-2); EOSINOPHILS % (MANUAL) 0 % (0-7); LYMPHOCYTES % (MANUAL) 26 % (20-46); MONOCYTES % (MANUAL) 8 % (0-11)
[2023-05-03 19:41] LABS: OVALOCYTES MODERATE; PLATELET ESTIMATE DECREASED (ADEQUATE)
[2023-05-03] MEDS: METHYLPREDNISOLONE SOD SUCC 40 MG/ML VIAL IVP ONE (20:40)
[2023-05-03 20:49] LABS: BILIRUBIN,URINE NEGATIVE (NEGATIVE); BLOOD, URINE NEGATIVE (NEGATIVE); CLARITY/URINE CLEAR (CLEAR); COLOR,URINE YELLOW (YELLOW); GLUCOSE,URINE NEGATIVE (NEGATIVE); KETONES,URINE NEGATIVE (NEGATIVE); LEUKOCYTE ESTERASE ,URINE NEGATIVE (NEGATIVE); NITRITE, URINE NEGATIVE (NEGATIVE); PH,URINE 5.5 (5.0-8.0); PROTEIN URINE NEGATIVE (NEGATIVE); UROBILINOGEN,URINE 0.2 (0.2-1.0)
[2023-05-04] VITALS (7 sets, daily range): BP systolic 106–131; PULSE 101–107; RESP 18–22; TEMP 97.2–98.6; O2SAT 97
[2023-05-04] MEDS: METOPROLOL SUCCINATE 25 MG TAB.SR.24H (TOPROL XL) PO ONE (05:42)
[2023-05-04] MEDS: DECADRON 4 MG TABLET PO ONE (10:27)
[2023-05-04] MEDS: D5/0.45 NS 1,000 ML IV SCH (10:31)
[2023-05-04] MEDS: PIPERACILLIN/TAZO 3.375/DEX-IS 50 ML IV SCH (12:06)
[2023-05-04] MEDS ORDERED: LEVOFLOXACIN 250 MG/D5W 50 ML IV SCH (12:45)
[2023-05-04] MEDS: DEXAMETHASONE SOD PHOSPHATE 10 MG/ML VIAL IVP ONE (13:56)
[2023-05-04] MEDS: TRANEXAMIC ACID 1,000 MG/10 ML VIAL IV ONE (13:56)
[2023-05-04] MEDS: LEVOFLOXACIN 250 MG/D5W 50 ML IV ONE (14:45)
[2023-05-04] MEDS: IMMUNE GLOBULIN (IVIG) - GAMUNEX-C 10% 100 mL BOTTLE IV SCH (16:19)
[2023-05-04] MEDS: DECADRON 4 MG TABLET PO SCH (20:22)
[2023-05-04] MEDS: TRANEXAMIC ACID 650 MG TABLET PO SCH (20:22)
[2023-05-05] VITALS (7 sets, daily range): BP systolic 108–131; PULSE 77–104; RESP 16–20; TEMP 97.6–102; O2SAT 93–98
[2023-05-05 04:44] LABS: BASOPHILS % (AUTO) 0.3 % (0.0-2.0); EOSINOPHILS % (AUTO) 0.1 % (0.0-4.0); LYMPHOCYTES # (AUTO) 0.5 K/uL (1.0-5.5); LYMPHOCYTES % (AUTO) 32.2 % (20.5-51.5); MEAN CORPUSCULAR HEMOGLOBIN 30 pg (27-31); MEAN CORPUSCULAR HGB CONC 35 % (32-36); MEAN CORPUSCULAR VOLUME 86 fL (79.0-98.0); MONOCYTES # (AUTO) 0.2 K/uL (0.0-1.0); MONOCYTES % (AUTO) 10.1 % (1.7-9.3); NEUTROPHILS % (AUTO) 57.3 % (40.0-70.0); RED CELL DISTRIBUTION WIDTH 13.4 % (9.0-15.0)
[2023-05-05 04:51] LABS: ANION GAP 13 (5-15); CARBON DIOXIDE 20 mmol/L (23-29); CHLORIDE 103 mmol/L (98-107); CREATININE 1.37 mg/dL (0.55-1.30); GLUCOSE 149 mg/dL (74-106); POTASSIUM 4.7 mmol/L (3.5-5.1); SODIUM SERUM 136 mmol/L (136-145); UREA NITROGEN, BLOOD 47 mg/dL (8-21)
[2023-05-05 05:00] LABS: NEUTROPHILS # (AUTO) 0.9 K/uL (1.8-7.7)
[2023-05-05 05:03] LABS: WHITE BLOOD COUNT (AUTO) 1.6 K/uL (4.8-10.8)
[2023-05-05 05:04] LABS: HEMATOCRIT 18.1 % (36-54); HEMOGLOBIN 6.4 g/dL (14.0-18.0); PLATELET COUNT (AUTO) 2 K/uL (130-430)
[2023-05-05] MEDS: FLUCONAZOLE 100 MG TABLET (DIFLUCAN) PO SCH (09:31)
[2023-05-05] MEDS: PANTOPRAZOLE SODIUM 40 MG/VIAL (PROTONIX) IVP SCH (09:31)
[2023-05-05] MEDS: METOPROLOL SUCCINATE 25 MG TAB.SR.24H (TOPROL XL) PO SCH (09:32)
[2023-05-05] MEDS: LEVOFLOXACIN 250 MG/D5W 50 ML IV SCH (09:33)
[2023-05-05] MEDS ORDERED: DEC4 PO (11:08)
[2023-05-05] MEDS: METOPROLOL TARTRATE 25 MG TABLET PO SCH (21:55)
[2023-05-06 01:15] VITALS: BP_SYST 141; PULSE 79; RESP 20; TEMP 99.9; O2SAT 100
[2023-05-06 06:10] LABS: BASOPHILS % (AUTO) 0.8 % (0.0-2.0); HEMATOCRIT 23.3 % (36-54); HEMOGLOBIN 8.1 g/dL (14.0-18.0); LYMPHOCYTES % (AUTO) 48.5 % (20.5-51.5); MEAN CORPUSCULAR HEMOGLOBIN 30 pg (27-31); MEAN CORPUSCULAR HGB CONC 35 % (32-36); MEAN CORPUSCULAR VOLUME 86 fL (79.0-98.0); MONOCYTES # (AUTO) 0.3 K/uL (0.0-1.0); NEUTROPHILS % (AUTO) 36.7 % (40.0-70.0); RED CELL DISTRIBUTION WIDTH 14.4 % (9.0-15.0)
[2023-05-06 06:47] LABS: NEUTROPHILS # (AUTO) 0.7 K/uL (1.8-7.7)
[2023-05-06 06:49] LABS: PLATELET COUNT (AUTO) 3 K/uL (130-430)
[2023-05-06 08:00] VITALS: O2SAT 94
[2023-05-06] MEDS ORDERED: ACETAMINOPHEN 325 MG TABLET PO PRN ×2 (09:00→09:15)
[2023-05-06] MEDS: CEFEPIME 2 GM in D5W 100 ML IV SCH (11:05)
[2023-05-06 15:23] VITALS: BP_SYST 130; PULSE 78; RESP 17; TEMP 98.3; O2SAT 95
[2023-05-06] MEDS ORDERED: TBO-FILGRASTIM 480 MCG/0.8 ML SYRINGE SUBCUT SCH (17:00)
[2023-05-06] MEDS ORDERED: METOPROLOL TARTRATE 25 MG TABLET PO SCH (21:00)
== END 2023-05-06 16:15 | disposition home or self-care (01) | DRG 813 ==
LOC: SED 15:46 → STU 18:51
PROVIDERS: ADMIT Specialist; ATTEND Specialist
PROC: 30233R1 Transfusion of Nonautologous Platelets into Peripheral Vein, Percutaneous Approach (ICD-10-PCS; principal; 2023-05-03)
PROC: 30233N1 Transfusion of Nonautologous Red Blood Cells into Peripheral Vein, Percutaneous Approach (ICD-10-PCS; 2023-05-05)
PROC: 05HY33Z Insertion of Infusion Device into Upper Vein, Percutaneous Approach (ICD-10-PCS; 2023-05-05)
DX: D69.3 Immune thrombocytopenic purpura (principal); D75.81 Myelofibrosis; D61.818 Other pancytopenia; R65.10 Systemic inflammatory response syndrome (SIRS) of non-infectious origin without acute organ dysfunction; D64.9 Anemia, unspecified; D70.9 Neutropenia, unspecified; R50.81 Fever presenting with conditions classified elsewhere; R16.1 Splenomegaly, not elsewhere classified; I48.0 Paroxysmal atrial fibrillation; E78.5 Hyperlipidemia, unspecified; I12.9 Hypertensive chronic kidney disease with stage 1 through stage 4 chronic kidney disease, or unspecified chronic kidney disease; N18.9 Chronic kidney disease, unspecified; Z87.891 Personal history of nicotine dependence
CPT/HCPCS: 36415; 71045; 80048; 81001; 81003; 83880; 84484; 85007; 85025; 85027; 85610; 86886; 86900; 86901; 86920; 87040; 93005; 96361; 96374; 99291; 99292; C9113; G0378; J0692; J1030; J1100; J1447; J1572; J1956; J2543; J3490; J7060; J8540; P9021; P9034